=== PATIENT | female | born 1950 | race Caucasian/White ===

== ENCOUNTER 2019-01-20 16:34 | Emergency (ER) | payer MEDICARE ==
--- NOTE | 2019-01-20 17:17 | ED Physician Documentation ---
PD HPI CHEST PAIN - Stated complaint Stated Complaint: HBP - Chief complaint Chief Complaint: Cardiac - History obtained from History obtained from: Patient - History of Present Illness Timing - onset: How many weeks ago (BP has been higher more consistently the past month or two. Seen by PMD last week before coming up here to visit with friends. She talked with her PMD office today, and told them about BP higher (was over 180 systolic today and had been over 200 in office last week). She was told to come to ER for evaluation and treatment "before you have a stroke".) Timing - duration: Weeks, Months (1-2) Timing - details: Gradual onset, Still present, Waxing and waning Quality: No: Pressure, Tightness, Tearing Location: No: Substernal Associated symptoms: Feeling faint / dizzy (at times when BP is higher. No headaches nor dyspnea.). No: Shortness of air, Diaphoresis, Nausea Recently seen: Clinic (last week, seen in office back home prior to coming to [place].) Review of Systems Constitutional: denies: Fever, Chills, Myalgias Nose: denies: Rhinorrhea / runny nose, Congestion Throat: denies: Sore throat Cardiac: denies: Palpitations, Pedal edema, Calf pain Respiratory: denies: Cough Musculoskeletal: denies: Extremity swelling Neurologic: denies: Confused, Altered mental status, Headache PD PAST MEDICAL HISTORY - Past Medical History Cardiovascular: Hypertension Respiratory: None Neuro: None Endocrine/Autoimmune: None - Present Medications Home Medications: Ambulatory Orders Medication Instructions Recorded Confirmed Benazepril/Hydrochlorothiazide 2 each PO DAILY 01/20/19 01/20/19 [Benazepril-Hctz 20-25 mg Tab] Diazepam [Valium] 2 mg PO TID 01/20/19 01/20/19 Magnesium 250 mg PO DAILY 01/20/19 01/20/19 Metoprolol Tartrate [Lopressor] 100 mg PO DAILY 01/20/19 01/20/19 Potassium Chloride 10 meq PO DAILY #20 tablet.er 01/20/19 Simvastatin 40 mg PO 01/20/19 amLODIPine [Norvasc] 50 mg PO DAILY 01/20/19 01/20/19 - Allergies Allergies/Adverse Reactions: Allergies Allergy/AdvReac Type Severity Reaction Status Date / Time No Known Drug Allergies Allergy Verified 01/20/19 16:49 PD ED PE NORMAL - Vitals Vital signs reviewed: Yes - General General: Alert and oriented X 3, No acute distress, Well developed/nourished - HEENT HEENT: PERRL (fundi appear normal. ) - Neck Neck: Supple, no meningeal sign, No adenopathy, No JVD - Cardiac Cardiac: RRR, No murmur - Respiratory Respiratory: Clear bilaterally - Derm Derm: Normal color, Warm and dry - Extremities Extremities: No deformity, No tenderness to palpate, No edema, No calf tenderness / cord - Neuro Neuro: Alert and oriented X 3, loading dock helper 2-12 intact, No motor deficit, No sensory deficit, Normal speech Eye Opening: Spontaneous Motor: Obeys Commands Verbal: Oriented GCS Score: 15 Results - Vitals Vitals: Vital Signs - 24 hr 01/20/19 01/20/19 01/20/19 16:46 17:00 17:59 Temperature 36.0 C L Heart Rate 73 60 Respiratory 22 17 Rate Blood Pressure 160/90 H 126/105 H Blood Pressure 160/90 H [Right] O2 Saturation 98 98 Oxygen O2 Source Room air - Labs Labs: Laboratory Tests 01/20/19 01/20/19 01/20/19 17:30 17:30 17:30 WBC 9.7 RBC 4.44 Hgb 13.7 Hct 39.9 MCV 90.0 MCH 30.8 MCHC 34.2 RDW 13.7 Plt Count 245 MPV 9.2 Neut # (Auto) 4.7 Lymph # (Auto) 3.8 H [place] # (Auto) 0.9 Eos # (Auto) 0.2 Baso # (Auto) 0.0 Absolute Nucleated RBC 0.00 Nucleated RBC % 0.0 Sodium 138 Potassium 3.0 L Chloride 103 Carbon Dioxide 24 Anion Gap 11.0 BUN 20 Creatinine 1.1 H Estimated GFR (MDRD) 49 L Glucose 114 H Calcium 9.4 Magnesium 1.8 Total Bilirubin 0.6 AST 22 ALT 18 Alkaline Phosphatase 90 B-Natriuretic Peptide 21 Total Protein 7.4 Albumin 4.0 Globulin 3.4 Albumin/Globulin Ratio 1.2 Lipase 36 TSH 01/20/19 17:30 WBC RBC Hgb Hct MCV MCH MCHC RDW Plt Count MPV Neut # (Auto) Lymph # (Auto) [place] # (Auto) Eos # (Auto) Baso # (Auto) Absolute Nucleated RBC Nucleated RBC % Sodium Potassium Chloride Carbon Dioxide Anion Gap BUN Creatinine Estimated GFR (MDRD) Glucose Calcium Magnesium Total Bilirubin AST ALT Alkaline Phosphatase B-Natriuretic Peptide Total Protein Albumin Globulin Albumin/Globulin Ratio Lipase TSH 3.79 PD MEDICAL DECISION MAKING - ED course Complexity details: considered differential (BP was elevated and is improving without direct intervention here. She says her BP readings over past month or more have been a little high and then higher at times. Lowest readings were still 130-140 systolic and heart rate 60-70.), d/w patient Departure - Departure Disposition: Home, Self Care Clinical Impression: Hypokalemia Hypertension Qualifiers: Hypertension type: essential hypertension Qualified Code(s): I10 - Essential (primary) hypertension Condition: Stable Record reviewed to determine appropriate education?: Yes Instructions: ED Potassium Deficiency Prescriptions: Potassium Chloride 10 meq PO DAILY #20 tablet.er Comments: Stay well-hydrated. Low-sodium/salt. Your potassium was a bit low on blood tests and this can affect the effectiveness of the blood pressure medicine sometimes. Add a potassium supplement for the next couple of weeks. Increase your metoprolol from once to twice daily. Continue your other medicines as usual. Follow-up with your primary care when back home. Check your blood pressure daily or every couple of days over the next week or 2 and see how the trend of it is. If you find your blood pressure is too low such as below 120 or you are feeling lightheaded or you notice your heart rate lower than 55 regularly, then lower the dose of the metoprolol back to once daily. Discharge Date/Time: 01/20/19 18:13
[2019-01-20 17:39] LABS: BASOPHILS % (AUTO) 0.3 %; EOSINOPHILS # (AUTO) 0.2 10^3/uL (0.0-0.7); EOSINOPHILS % (AUTO) 2.5 %; HGB - HEMOGLOBIN 13.7 g/dL (12.0-16.0); LYMPHOCYTES # (AUTO) 3.8 10^3/uL (1.5-3.5); LYMPHOCYTES % (AUTO) 39.7 %; MEAN CORPUSCULAR HEMOGLOBIN 30.8 pg (27.0-31.0); MEAN CORPUSCULAR HGB CONC 34.2 g/dL (32.0-36.0); MEAN PLATELET VOLUME 9.2 fL (7.9-10.8); MONOCYTES # (AUTO) 0.9 10^3/uL (0.0-1.0); NEUTROPHILS # (AUTO) 4.7 10^3/uL (1.5-6.6); NEUTROPHILS % (AUTO) 48.5 %; PLT - PLATELET COUNT 245 10^3/uL (130-450); RED BLOOD COUNT 4.44 10^6/uL (4.20-5.40); RED CELL DISTRIBUTION WIDTH 13.7 % (12.0-15.0); WHITE BLOOD COUNT 9.7 x10^3/uL (4.8-10.8)
[2019-01-20 17:52] LABS: ALBUMIN/GLOBULIN RATIO 1.2 (1.0-2.2); BILIRUBIN,TOTAL 0.6 mg/dL (0.2-1.0); CALCIUM 9.4 mg/dL (8.5-10.3); CREATININE 1.1 mg/dL (0.4-1.0); MAGNESIUM 1.8 mg/dL (1.7-2.8); TOTAL PROTEIN 7.4 g/dL (6.7-8.2)
[2019-01-20] MEDS ORDERED: POTASSIUM CHLORIDE 10 MEQ CAPSULE PO STA (17:56)
[2019-01-20 18:00] VITALS: BP 126/105
== END 2019-01-20 18:13 | disposition home or self-care (01) ==
LOC: ED 16:34
DX: I10 Essential (primary) hypertension (principal); E87.6 Hypokalemia
CPT/HCPCS: 36415; 83690; 83735; 83880; 93005; 99283; A9270; 80053; 84443; 85025